=== PATIENT | female | born 1975 | race Caucasian/White ===

== ENCOUNTER → 2016-10-01 | Outpatient (CLI) | payer OTHER, MEDICAID ==
[~2016-10-01] MED LIST: ANASTROZOLE1 M1; CIPROFLOXACIN500 MG PO; METFORMIN500 MG PO; NOVOLOG 70/30 M10 ML; PRILOSEC40 MG PO; TOPAMAX100 MG PO; TOPROL XL100 MG PO; ZOLOFT100 MG PO
== END | disposition home or self-care (01) ==
LOC: CARD 09:00
DX: R00.2 Palpitations (principal)

== ENCOUNTER 2016-12-03 19:23 | Emergency (ER) | payer OTHER ==
[~2016-12-03] VITALS: Ht 160 cm; Wt 113.4 kg
[2016-12-03] MEDS ORDERED: CLINDAMYCIN150 MG PO (20:26)
[2016-12-03] MEDS ORDERED: DIFLUCAN150 MG PO (20:26)
== END 2016-12-03 20:53 | disposition home or self-care (01) ==
LOC: ED 19:23
DX: L02.01 Cutaneous abscess of face (principal); Z79.899 Other long term (current) drug therapy; Z88.2 Allergy status to sulfonamides; Z88.8 Allergy status to other drugs, medicaments and biological substances

== ENCOUNTER 2017-01-21 10:41 | Emergency (ER) | payer OTHER ==
[~2017-01-21] VITALS: Ht 160 cm; Wt 113.4 kg
[~2017-01-21 10:41] MED LIST changes: +CLINDAMYCIN150 MG PO; +DIFLUCAN150 MG PO
[2017-01-21 12:16] LABS: BILIRUBIN NEGATIVE (NEGATIVE); BLOOD NEGATIVE (NEGATIVE); CLARITY CLEAR (CLEAR); COLOR YELLOW (YELLOW); GLUCOSE NEGATIVE (NEGATIVE); KETONE NEGATIVE (NEGATIVE); LEUKO ESTERASE TRACE (NEGATIVE); NITRITE NEGATIVE (NEGATIVE); SPECIFIC GRAVITY 1.015 (1.005-1.030); UROBILINOGEN 0.2 E.U./dl (0.2-1.0)
[2017-01-21 12:25] LABS: MUCOUS TRACE; RBC 0-2 rbc/hpf (0-2)
[2017-01-21 12:41] LABS: BASO # 0.1 10*3/uL (0.0-0.1); BASO % 0.7 % (0.0-1.0); EOS # 0.1 10*3/uL (0.0-0.4); EOS % 1.8 % (1.0-4.0); HEMATOCRIT 39.9 % (37.0-47.0); HEMOGLOBIN 12.8 g/dl (12.0-16.0); LYMPH # 1.9 10*3/uL (1.3-4.4); MEAN CELL VOLUME 83.6 fl (81.0-99.0); MEAN CORPUSCULAR HGB 26.8 pg (27.0-31.0); MEAN CORPUSCULAR HGB CONC 32.1 g/dl (33.0-37.0); MEAN PLATELET VOLUME 11.6 fl (9.6-12.3); MONO # 0.3 10*3/uL (0.1-1.0); MONO % 4.3 % (3.0-9.0); NEUT # 5.2 10*3/uL (2.3-7.9); NEUT % 67.4 % (47.0-73.0); PLATELET COUNT AUTOMATED 214 10*3/uL (130-400); RED BLOOD COUNT 4.77 10*6/uL (4.10-5.10); RED CELL DISTRI WIDTH 14.8 % (0-14.5); WHITE BLOOD COUNT 7.7 10*3/uL (4.8-10.8)
[2017-01-21 12:56] LABS: ALBUMIN 3.5 gm/dl (3.1-4.5); ALKALINE PHOSPHATASE 43 U/L (45-117); BUN 14 mg/dl (7-24); CHLORIDE 105 mmol/L (98-107); CREATININE 0.65 mg/dL (0.55-1.02); POTASSIUM 3.9 mmol/L (3.5-5.1); SGOT/AST 19 IU/L (3-35); SGPT/ALT 28 U/L (12-78); SODIUM 137 mmol/L (136-145); TOTAL PROTEIN 7.7 gm/dL (6.4-8.2)
[2017-01-21] MEDS ORDERED: NORCO 5-325 TA1 EACH PO (14:21)
[2017-01-21] MEDS ORDERED: CYCLOBENZAPRINE5 M3 PO (14:21)
== END 2017-01-21 14:50 | disposition home or self-care (01) ==
LOC: ED 10:41
PROVIDERS: Physician Assistant
DX: M54.5 Low back pain (principal); Z79.899 Other long term (current) drug therapy; Z90.89 Acquired absence of other organs; Z88.2 Allergy status to sulfonamides; Z88.8 Allergy status to other drugs, medicaments and biological substances; Z90.49 Acquired absence of other specified parts of digestive tract

== ENCOUNTER 2017-08-13 16:20 | Emergency (ER) | payer OTHER ==
[~2017-08-13] VITALS: Wt 111.6 kg
[~2017-08-13 16:20] MED LIST changes: +CYCLOBENZAPRINE5 M3 PO; +NORCO 5-325 TA1 EACH PO; -NOVOLOG 70/30 M10 ML; +NOVOLOG 70/30 M10 ML SC; -TOPAMAX100 MG PO; +TOPAMAX200 MG PO
[2017-08-13] MEDS ORDERED: LEVEMIR FL100 UNIT/1 SC (16:29)
[2017-08-13] MEDS ORDERED: ASPIRIN FOR CHI81 MG PO (16:29)
[2017-08-13] MEDS ORDERED: PROTONIX40 MG PO (16:30)
[2017-08-13] MEDS ORDERED: VITAMIN D50000 UNIT PO (16:30)
[2017-08-13] MEDS ORDERED: BUSPAR5 MG PO (16:30)
[2017-08-13] MEDS ORDERED: LIPITOR10 MG PO (16:31)
[2017-08-13] MEDS ORDERED: Amaryl2 MG PO (16:31)
[2017-08-13] MEDS ORDERED: TOLTERODINE TART4 M1 PO (16:32)
[2017-08-13] MEDS ORDERED: TOPAMAX200 MG PO (16:32)
[2017-08-13 16:56] LABS: BASO % 0.5 % (0.0-1.0); EOS # 0.1 10*3/uL (0.0-0.4); EOS % 0.6 % (1.0-4.0); HEMATOCRIT 43.7 % (37.0-47.0); HEMOGLOBIN 14.1 g/dl (12.0-16.0); LYMPH # 0.8 10*3/uL (1.3-4.4); MEAN CELL VOLUME 82.1 fl (81.0-99.0); MEAN CORPUSCULAR HGB 26.5 pg (27.0-31.0); MEAN CORPUSCULAR HGB CONC 32.3 g/dl (33.0-37.0); MEAN PLATELET VOLUME 11.9 fl (9.6-12.3); MONO # 0.4 10*3/uL (0.1-1.0); MONO % 4.8 % (3.0-9.0); NEUT # 6.8 10*3/uL (2.3-7.9); NEUT % 83.5 % (47.0-73.0); PLATELET COUNT AUTOMATED 238 10*3/uL (130-400); RED BLOOD COUNT 5.32 10*6/uL (4.10-5.10); RED CELL DISTRI WIDTH 14.6 % (0-14.5); WHITE BLOOD COUNT 8.2 10*3/uL (4.8-10.8)
[2017-08-13 17:10] LABS: ALBUMIN 3.6 gm/dl (3.1-4.5); ALKALINE PHOSPHATASE 54 U/L (45-117); BUN 9 mg/dl (7-24); CHLORIDE 102 mmol/L (98-107); CREATININE 0.69 mg/dL (0.55-1.02); LIPASE 98 U/L (73-393); POTASSIUM 3.4 mmol/L (3.5-5.1); SGOT/AST 16 IU/L (3-35); SGPT/ALT 28 U/L (12-78); SODIUM 137 mmol/L (136-145); TOTAL PROTEIN 7.8 gm/dL (6.4-8.2)
[2017-08-13 18:50] LABS: TROPONIN I < 0.015 ng/ml (<0.045)
[2017-08-13 18:59] LABS: BILIRUBIN 2+ (NEGATIVE); BLOOD NEGATIVE (NEGATIVE); CLARITY SL CLOUDY (CLEAR); COLOR YELLOW (YELLOW); GLUCOSE 3+ (NEGATIVE); KETONE 2+ (NEGATIVE); LEUKO ESTERASE NEGATIVE (NEGATIVE); NITRITE NEGATIVE (NEGATIVE); PH 5.5 (5.0-9.0); SPECIFIC GRAVITY >= 1.030 (1.005-1.030); UROBILINOGEN 0.2 E.U./dl (0.2-1.0)
[2017-08-13 19:07] LABS: BACTERIA TRACE; EPITHELIAL CELLS 0-2; MUCOUS 2+
[2017-08-13] MEDS ORDERED: ZOFRAN4 MG PO (20:02)
== END 2017-08-13 20:05 | disposition home or self-care (01) ==
LOC: ED 16:20
PROVIDERS: Physician Assistant
DX: K52.9 Noninfective gastroenteritis and colitis, unspecified (principal); E11.9 Type 2 diabetes mellitus without complications; Z90.89 Acquired absence of other organs; Z79.899 Other long term (current) drug therapy; Z79.4 Long term (current) use of insulin; Z79.82 Long term (current) use of aspirin; Z88.2 Allergy status to sulfonamides; Z88.8 Allergy status to other drugs, medicaments and biological substances

== ENCOUNTER → 2017-08-27 | Outpatient (CLI) | payer OTHER ==
[~2017-08-27] MED LIST changes: +ASPIRIN FOR CHI81 MG PO; +Amaryl2 MG PO; +BUSPAR5 MG PO; +LEVEMIR FL100 UNIT/1 SC; +LIPITOR10 MG PO; +PROTONIX40 MG PO; +TOLTERODINE TART4 M1 PO; +VITAMIN D50000 UNIT PO; +ZOFRAN4 MG PO
[2017-08-27 08:05] LABS: CREATININE 0.75 mg/dL (0.55-1.02)
== END | disposition home or self-care (01) ==
LOC: LAB 07:27 → CT 08:00
PROVIDERS: Internal Medicine Gastroenterology
DX: K76.0 Fatty (change of) liver, not elsewhere classified (principal); R11.10 Vomiting, unspecified; R19.7 Diarrhea, unspecified; Z85.3 Personal history of malignant neoplasm of breast; Z90.49 Acquired absence of other specified parts of digestive tract

== ENCOUNTER 2020-03-12 05:05 | Emergency (ER) | payer OTHER ==
[~2020-03-12] VITALS: Ht 160 cm; Wt 111.6 kg
[2020-03-12 05:45] LABS: BASO # 0.1 10*3/uL (0.0-0.1); BASO % 0.7 % (0.0-1.0); EOS # 0.2 10*3/uL (0.0-0.4); EOS % 2.5 % (1.0-4.0); HEMATOCRIT 42.4 % (37.0-47.0); LYMPH # 2.4 10*3/uL (1.3-4.4); LYMPH % 25.5 % (27.0-41.0); MEAN CELL VOLUME 80.5 fl (81.0-99.0); MEAN CORPUSCULAR HGB 24.3 pg (27.0-31.0); MEAN CORPUSCULAR HGB CONC 30.2 g/dl (33.0-37.0); MEAN PLATELET VOLUME 11.6 fl (9.6-12.3); MONO # 0.5 10*3/uL (0.1-1.0); MONO % 5.3 % (3.0-9.0); NEUT % 65.5 % (47.0-73.0); PLATELET COUNT AUTOMATED 266 10*3/uL (130-400); RED BLOOD COUNT 5.27 10*6/uL (4.10-5.10); RED CELL DISTRI WIDTH 15.9 % (0-14.5); WHITE BLOOD COUNT 9.2 10*3/uL (4.8-10.8)
[2020-03-12 05:47] LABS: ALBUMIN 3.8 gm/dl (3.1-4.5); ALKALINE PHOSPHATASE 49 U/L (45-117); BUN 15 mg/dl (7-24); CHLORIDE 107 mmol/L (98-107); LIPASE 205 U/L (73-393); POTASSIUM 3.8 mmol/L (3.5-5.1); SGOT/AST 24 IU/L (3-35); SGPT/ALT 49 U/L (12-78); SODIUM 138 mmol/L (136-145); TOTAL PROTEIN 8.1 gm/dL (6.4-8.2)
== END 2020-03-12 06:11 | disposition home or self-care (01) ==
LOC: ED 05:05
PROVIDERS: Internal Medicine
DX: T50.905A Adverse effect of unspecified drugs, medicaments and biological substances, initial encounter (principal); Z88.2 Allergy status to sulfonamides; Z88.8 Allergy status to other drugs, medicaments and biological substances; Z79.899 Other long term (current) drug therapy; Z79.4 Long term (current) use of insulin; Y92.89 Other specified places as the place of occurrence of the external cause

== ENCOUNTER → 2021-10-12 | Outpatient (CLI) | payer OTHER | END | disposition home or self-care (01) | LOC: CARD 11:32 | PROVIDERS: ATTEND Internal Medicine Cardiovascular Disease | DX: I65.23 Occlusion and stenosis of bilateral carotid arteries (principal); Z79.899 Other long term (current) drug therapy; H53.133 Sudden visual loss, bilateral ==

== ENCOUNTER 2023-05-29 11:07 | Emergency (ER) | payer OTHER ==
[~2023-05-29] VITALS: Ht 165.1 cm; Wt 79.4 kg
[2023-05-29 11:52] LABS: BASO # 0.1 10*3/uL (0.0-0.1); BASO % 0.9 % (0.0-1.0); EOS # 0.1 10*3/uL (0.0-0.4); EOS % 1.2 % (1.0-4.0); HEMATOCRIT 38.9 % (37.0-47.0); LYMPH # 2.1 10*3/uL (1.3-4.4); MEAN CELL VOLUME 90.3 fl (81.0-99.0); MEAN CORPUSCULAR HGB 28.3 pg (27.0-31.0); MEAN CORPUSCULAR HGB CONC 31.4 g/dl (33.0-37.0); MEAN PLATELET VOLUME 10.8 fl (9.6-12.3); MONO # 0.4 10*3/uL (0.1-1.0); MONO % 6.1 % (3.0-9.0); NEUT % 59.4 % (47.0-73.0); PLATELET COUNT AUTOMATED 235 10*3/uL (130-400); RED BLOOD COUNT 4.31 10*6/uL (4.10-5.10); RED CELL DISTRI WIDTH 13.1 % (0-14.5); WHITE BLOOD COUNT 6.7 10*3/uL (4.8-10.8)
[2023-05-29 12:15] LABS: ALKALINE PHOSPHATASE 44 U/L (46-116); BUN 12 mg/dl (9-23); CHLORIDE 112 mmol/L (98-107); LIPASE 48 U/L (12-53); POTASSIUM 3.9 mmol/L (3.4-5.1); SGPT/ALT 21 U/L (5-49); TOTAL PROTEIN 6.8 gm/dL (6.0-8.0)
[2023-05-29 12:52] LABS: BILIRUBIN Negative (Negative); BLOOD Negative (Negative); CLARITY Clear (Clear); COLOR Yellow (Yellow); GLUCOSE Trace (Negative); KETONE Negative (Negative); LEUKO ESTERASE Negative (Negative); NITRITE Negative (Negative); PH 7.5 (4.5-8.0); SPECIFIC GRAVITY <= 1.005 (1.001-1.030); UROBILINOGEN 0.2 E.U./dl (0.0-1.0)
[2023-05-29 13:00] LABS: BACTERIA TRACE; EPITHELIAL CELLS 0-2; WBC 0-2 wbc/hpf (0-5)
[2023-05-29] MEDS ORDERED: AMOXICILLIN500 M3 PO (14:31)
== END 2023-05-29 15:30 | disposition home or self-care (01) ==
LOC: ED 11:07
PROVIDERS: Nurse Practitioner Family
DX: J06.9 Acute upper respiratory infection, unspecified (principal); K64.4 Residual hemorrhoidal skin tags; F41.9 Anxiety disorder, unspecified; F32.A Depression, unspecified; E11.9 Type 2 diabetes mellitus without complications; D64.9 Anemia, unspecified; Z88.2 Allergy status to sulfonamides; Z88.8 Allergy status to other drugs, medicaments and biological substances; Z95.5 Presence of coronary angioplasty implant and graft; Z98.890 Other specified postprocedural states; Z20.822 Contact with and (suspected) exposure to COVID-19